=== PATIENT | male | born 1940 | race Caucasian/White ===

== ENCOUNTER 2020-12-26 07:23 | Outpatient (CLI) | payer MEDICARE, BC ==
[2020-12-26] MEDS ORDERED: Iopamidol 370 76% 100 ML VIAL ONE (12:36)
== END 2020-12-26 07:24 | disposition home or self-care (01) ==
LOC: CT 07:23
PROVIDERS: ATTEND Physician Assistant Medical
DX: R19.7 Diarrhea, unspecified (principal); R63.4 Abnormal weight loss; R14.3 Flatulence; N28.1 Cyst of kidney, acquired; K86.89 Other specified diseases of pancreas
CPT/HCPCS: 74177; 82565; Q9967